=== PATIENT | male | born 1955 | race Caucasian/White ===

== ENCOUNTER 2020-09-30 05:05 | Inpatient (IN) ==
--- NOTE | 2020-09-15 16:26 | PAT Medication Instructions ---
Medication Instructions Date of Service September 15, 2020 Home Medications cholecalciferol (vitamin D3) [Vitamin D3] 125 mcg PO HS citalopram 30 mg PO HS ferrous sulfate 325 mg PO HS folic acid 0.8 mg PO HS gabapentin 600 mg PO TID hydroxyzine pamoate 50 mg PO DAILY PRN melatonin 5 mg PO HS PRN metoprolol succinate 50 mg PO HS mirtazapine [Remeron] 30 mg PO HS pantoprazole 40 mg PO BID DO NOT take the morning of surgery hydroxyzine pamoate 50 mg PO DAILY PRN Take morning of surgery With a small sip of water, OTHERWISE NOTHING TO EAT OR DRINK AFTER MIDNIGHT: gabapentin 600 mg PO TID pantoprazole 40 mg PO BID Take evening before surgery cholecalciferol (vitamin D3) [Vitamin D3] 125 mcg PO HS citalopram 30 mg PO HS ferrous sulfate 325 mg PO HS folic acid 0.8 mg PO HS gabapentin 600 mg PO TID hydroxyzine pamoate 50 mg PO DAILY PRN (if needed) melatonin 5 mg PO HS PRN (if needed) metoprolol succinate 50 mg PO HS mirtazapine [Remeron] 30 mg PO HS pantoprazole 40 mg PO BID Other Notes If you have any questions please call us at [phone] or [phone] or [phone] or [phone]
--- NOTE | 2020-09-19 15:03 | Anesthesiology Consultation ---
Date of Service September 19, 2020 Assessment & Plan (1) Encounter for pre-operative examination: Chart Review Chart Review: Pending: Refer to Additional Notes / Consult section (pending surgeon ordered PCP clearance, most recent cardi note and preop Covid testing ) and Patient seen in Pre Admission Testing Possible difficult intubation due to anatomy and physical exam Awaiting surgeon ordered PCP clearance. Will also attempt to get most recent cardio note Per PAT appointment 09/19/2020, patient resides in [facility]. Denies recent travel. No known Covid infection in the past 90 days. No known Covid positive contacts or Covid related symptoms. Preop Covid testing scheduled 09/25/20=will await results. Educated on importance of self quarantining, social distancing and wearing mask in public both for the patient and household contacts. Teaching & Discussion Pre-Anesthesia Teaching/Discussion Notes: Instructed NPO after midnight before surgery,except medications with 15 cc of water. Medication instructions provided according to the [facility] guidelines. History Surgery Operation Date: 09/30/20 09:20 Proposed Procedures p L4-S1 Decompression and Fusion, Spinal Cord Monitoring - Yoshi Kwon, Height/Weight Height: 5 ft 7 in Weight: 119.8 kg Allergies Allergy/AdvReac Type Severity Reaction Status Date / Time amoxicillin [From Augmentin] Allergy Severe Nausea Verified 09/15/20 14:07 aripiprazole [From Abilify] Allergy Severe Headache Verified 09/15/20 14:07 clavulanic acid Allergy Severe Nausea Verified 09/15/20 14:07 [From Augmentin] Medications Home Medications Medication Instructions Recorded Confirmed Last Taken cholecalciferol (vitamin D3) 125 mcg PO HS 09/15/20 09/15/20 Unknown [Vitamin D3] citalopram 30 mg PO HS 09/15/20 09/15/20 Unknown ferrous sulfate 325 mg PO HS 09/15/20 09/15/20 Unknown folic acid 0.8 mg PO HS 09/15/20 09/15/20 Unknown gabapentin 600 mg PO TID 09/15/20 09/15/20 Unknown hydroxyzine pamoate 50 mg PO DAILY PRN 09/15/20 09/15/20 Unknown melatonin 5 mg PO HS PRN 09/15/20 09/15/20 Unknown metoprolol succinate 50 mg PO HS 09/15/20 09/15/20 Unknown mirtazapine [Remeron] 30 mg PO HS 09/15/20 09/15/20 Unknown pantoprazole 40 mg PO BID 09/15/20 09/15/20 Unknown Past Medical History Medical History Anxiety Barretts esophagus Well controlled and stable - follows with routine EGDs Depression On medications -fluctuates in severity Fatty liver GERD (gastroesophageal reflux disease) Well controlled and stable Hiatal hernia Hypertension Myocardial Infarction 05/2017- no stents or bypass needed Follows annually with cardio Osteoarthritis 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 went to rehab and AA meetings Sleep apnea No device Exercise / Class Metabolic Activity III < 4 Walking/Shop/Light housework (no chest pain or SOB with short distance, flat surface ambulation ) Past Surgical History Surgical History History of cardiac cath ? [facility] 2016 History of colonoscopy History of esophagogastroduodenoscopy (EGD) Nausea and vomiting after administration of anesthetic agent Past Anesthesia History No Hx of Anesthesia Complications and No Family Hx of Anesthesia Complications History of PONV No Hx of PONV (Did have issues with PONV in the past - but no recent issues ) and No Hx of Motion Sickness Social History Smoking Status: Never smoker Do You Dip or Chew Tobacco: No (quit "decades ago") Hx Alcohol Use: No Alcohol Intake Frequency Comment: 08/06/2020 quit, 1/5 vodka, AA meetings and inpatient rehab Hx Substance Use: No substance use type: does not use Review of Systems Patient denies chest pain, shortness of breath, dyspnea on exertion, cough, wheezing, palpitations. No hx of seizures, stroke. No hx of blood clots or blood transfusions Physical Exam Vital Signs VITALS BP 120/74 P 70 TEMP 98.4 SP02 99% RESP 16 Constitutional no acute distress ENMT Mouth: no TMJ clicking Thyromental Distance: < 3.5 Finger Breadths (2.5) Mallampati Class: IV Capped on left front top tooth Neck + limited neck extension (significant ) Respiratory normal respiratory effort; no respiratory distress Auscultation: lungs clear to auscultation bilaterally; no wheezes Cardiovascular Rate/Rhythm: regular rate and regular rhythm Heart Sounds: no murmur Vessels: no carotid bruit Musculoskeletal Spine: + pain with cervical ROM (pain in lumbar spine ) Extremities: extremities normal to inspection Psychiatric Orientation: alert Testing Laboratory Results 09/19/20 16:05 09/19/20 16:05 PT 9.9 Seconds (9.0-12.0) 09/19/20 16:05 INR 1.0 (0.9-1.1) 09/19/20 16:05 APTT 25.1 Seconds (21.0-31.0) 09/19/20 16:05 Urine Color Yellow 09/19/20 Unknown Urine Appearance Clear (Clear) 09/19/20 Unknown Urine pH 5.0 (4.5-7.5) 09/19/20 Unknown Ur Specific [place] 1.025 (1.000-1.030) 09/19/20 Unknown Urine Protein Negative (Negative) 09/19/20 Unknown Urine Glucose (UA) Negative (Negative) 09/19/20 Unknown Urine Ketones Negative (Negative) 09/19/20 Unknown Urine Nitrite Negative (Negative) 09/19/20 Unknown Ur Leukocyte Esterase Negative (Negative) 09/19/20 Unknown Blood Type O Positive 09/19/20 16:05 Antibody Screen NEGATIVE 09/19/20 16:05 Surgeon's office informed of mild leukocytosis - pt did not have an infectious signs or symptoms at PAT appt on 09/19/20 Electrocardiogram Date: 09/14/20 Findings: + NSR @ (69bpm) Possible left atrial enlargement. Prolonged QT. Chest X-Ray Date: 09/14/20 Findings: + NAD Echocardiogram Date: 08/17/20 EF: 55-60% LV Function: normal Other Findings: + LVH (borderline ) and + diastolic dysfunction (Grade I ) Mild left atrial enlargement.
[2020-09-19 16:37] LABS: Basophils # (auto) 0.08 K/uL (0-0.2); Basophils % (auto) 0.6 %; Eosinophils # (auto) 0.84 K/uL (0-0.5); Eosinophils % (auto) 6.7 %; Hematocrit (blood only) 34.3 % (42-52); Hemoglobin 11.8 g/dL (14.0-18.0); Immature Granulocytes # (auto) 0.14 K/uL (0.00-0.02); Immature Granulocytes % (auto) 1.1 %; Lymphocytes # (auto) 3.01 K/uL (1.2-3.4); Lymphocytes % (auto) 23.8 %; Mean Corpuscular Hemoglobin 31.9 pg (25-34); Mean Corpuscular Hgb Conc 34.4 g/dL (32-36); Mean Corpuscular Volume 92.7 fL (80-100); Mean Platelet Volume 11.4 fL (7.4-10.4); Monocytes # (auto) 1.13 K/uL (0.11-0.59); Monocytes % (auto) 8.9 %; Neutrophils # (auto) 7.43 K/uL (1.4-6.5); Neutrophils % (auto) 58.9 %; Nucleated RBC # (auto) 0.04 K/uL (0-0); Nucleated RBC % (auto) 0.3 %; Platelet Count 290 K/uL (130-400); RDW Coefficient of Variation 14.8 % (11.5-14.5); RDW Standard Deviation 49.4 fL (36.4-46.3); White Blood Count 12.63 K/uL (4.8-10.8)
[2020-09-19 16:38] LABS: Appearance Urine Clear (Clear); Bilirubin Urine Negative (Negative); Blood Urine Negative (Negative); Color Urine Yellow; Glucose Urine UA Negative (Negative); Ketones Urine Negative (Negative); Leukocyte Esterase Urine Negative (Negative); Nitrite Urine Negative (Negative); Protein Urine Negative (Negative); Specific Gravity Urine 1.025 (1.000-1.030); Urobilinogen Urine Negative (Negative)
[2020-09-19 16:44] LABS: BUN Creatinine Ratio 19.5 (10-20); Calcium 8.8 mg/dl (8.5-10.1); Est GFR (African American) 86.5; Est GFR (Non-African American) 74.7; Potassium 4.3 mmol/L (3.5-5.1)
[2020-09-19 16:55] LABS: Partial Thromboplastin Time 25.1 Seconds (21.0-31.0); Prothrombin Time 9.9 Seconds (9.0-12.0)
[2020-09-30] MEDS: GABAPENTIN 600 MG DOSE PO SCH ×2 (05:40→05:48)
[2020-09-30] MEDS ORDERED: CLINDAMYCIN 600 MG/54 ML BAG IV SCH (06:00)
[2020-09-30] MEDS ORDERED: ACETAMINOPHEN 500 MG TAB PO SCH (06:00)
[2020-09-30] MEDS ORDERED: LR 15ML/HR IV SCH (06:00)
[2020-09-30] MEDS ORDERED: CeleBREX 200 MG CAP PO SCH (06:00)
[2020-09-30] MEDS ORDERED: GLYCOPYRROLATE 0.2 MG/ML VIAL ONE (06:40)
[2020-09-30] MEDS ORDERED: DEXAMETHASONE SOD INJ 4 MG/ML VIAL ONE (06:40)
[2020-09-30] MEDS ORDERED: NEOSTIGMINE METHYLSULFATE 1 MG/ML 10ML VIAL ONE (06:40)
[2020-09-30] MEDS ORDERED: ONDANSETRON INJ 2 MG/ML 2 ML VIAL ONE (06:40)
[2020-09-30] MEDS ORDERED: LIDOCAINE HCL 2% 2 ML VIAL/AMP(20MG/ML) INFIL ONE (06:40)
[2020-09-30] MEDS ORDERED: PROPOFOL IV EMULSION 10 MG/ML 20 ML VIAL IV ONE (06:40)
[2020-09-30] MEDS ORDERED: MIDAZOLAM HCL 1 MG/ML 2ML VIAL ONE (06:41)
[2020-09-30] MEDS ORDERED: fentaNYL citrate 100 MCG/2 ML VIAL ONE (06:41)
[2020-09-30] MEDS ORDERED: BUPIVACAINE/EPINEPHRINE 0.5% MPF 1:200,000 30 ML VIAL ONE (06:51)
[2020-09-30] MEDS ORDERED: BACITRACIN INJ 50,000 UNIT VIAL ONE (06:51)
--- NOTE | 2020-09-30 07:21 | History & Physical Bridge Note ---
Date of Service September 30, 2020 History & Physical Bridge Note I have examined the patient, reviewed the History & Physical and in the interval since the performance of the History & Physical I have noted the following changes of clinical significance: no changes noted
--- NOTE | 2020-09-30 07:22 | History & Physical Report ---
Date of Service September 30, 2020 Assessment & Plan (1) Neurogenic claudication due to lumbar spinal stenosis: Admission and Anticipated Discharge Date Admission Date: L4-S1 decompression fusion History of Present Illness Chief Complaint: Back and leg pain Primary Care Provider: Garret Malik This is a 64-year-old male who presents with chronic persistent back and leg pain after failing course of nonoperative care is here for surgical invention. Allergies Allergy/AdvReac Type Severity Reaction Status Date / Time aripiprazole [From Abilify] Allergy Intermediate Headache Verified 09/30/20 05:42 amoxicillin [From Augmentin] AdvReac Intermediate Nausea Verified 09/30/20 05:42 clavulanic acid AdvReac Intermediate Nausea Verified 09/30/20 05:42 [From Augmentin] Home Medications Medication Instructions Recorded Confirmed Type cholecalciferol (vitamin D3) 125 mcg PO HS 09/15/20 09/30/20 History [Vitamin D3] citalopram 30 mg PO HS 09/15/20 09/30/20 History ferrous sulfate 325 mg PO HS 09/15/20 09/30/20 History folic acid 0.8 mg PO HS 09/15/20 09/30/20 History gabapentin 600 mg PO TID 09/15/20 09/30/20 History hydroxyzine pamoate 50 mg PO DAILY PRN 09/15/20 09/30/20 History melatonin 5 mg PO HS PRN 09/15/20 09/30/20 History metoprolol succinate 50 mg PO HS 09/15/20 09/30/20 History mirtazapine [Remeron] 30 mg PO HS 09/15/20 09/30/20 History pantoprazole 40 mg PO BID 09/15/20 09/30/20 History Past Med/Surg History Medical History Anxiety Barretts esophagus Well controlled and stable - follows with routine EGDs Depression On medications -fluctuates in severity Fatty liver GERD (gastroesophageal reflux disease) Well controlled and stable Hiatal hernia Hypertension Myocardial Infarction 05/2017- no stents or bypass needed Follows annually with cardio Osteoarthritis 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 went to rehab and AA meetings Sleep apnea No device Surgical History History of cardiac cath ? [facility] 2017 History of colonoscopy History of esophagogastroduodenoscopy (EGD) Nausea and vomiting after administration of anesthetic agent Social History Smoking Status: Never smoker Second Hand Exposure: No; Do You Dip or Chew Tobacco: No (quit "decades ago"); Hx Alcohol Use: No Hx Substance Use: No Preferred Language: Beninese Mold Filler Plastic Dolls Required: No Beliefs That Will Affect Care: None Current Living Situation: Alone Other Information That Helps Us Care for You: No Feels Safe at Home: Yes Safety Concerns: Feels Safe At This Time Assistive Devices: Walker Physical Exam Physical Exam: Patient is alert and oriented Heart regular in rhythm Lungs clear to auscultation Results & Data ([facility]) Vital Signs (Past 12 Hours) Vital Signs Temp Pulse Resp BP Pulse Ox 09/30/20 05:43 36.8 C 66 18 123/90 95
[2020-09-30] MEDS ORDERED: HYDROmorphone INJ 2 MG/ML SYR/VIAL ONE (07:49)
[2020-09-30] MEDS ORDERED: FLOSEAL HEMOSTATIC MATRIX 10ML TOP ONE (09:35)
--- NOTE | 2020-09-30 09:45 | Operative Report ---
Post Operative Report Pre & Post Diagnosis Operation Date: 09/30/20 07:00 Pre-Op Diagnosis: Spinal Stenosis, Lumbar Region with Neurogenic Claudication Post-Op Diagnosis: Spinal Stenosis, Lumbar Region with Neurogenic Claudication I identified the patient and participated in the time-out.: Yes Procedure Operation Date: 09/30/20 07:00 Actual Procedures #1 lumbar decompression bilateral medial facetectomies and foraminotomies L3-4, L4-5 and L5-S1. #2 posterior spinal fusion L4-5 L5-S1. #3 placement posterior instrumentation L4-5 L5-S1. #4 interbody fusion L4-5 L5-S1. #5 placement peek cage 9 x 26 mm at L4-5 and 12 x 26 mm L5-S1. #6 placement of locally harvested morselized autograft in the posterior gutters. #7 placement of I factor in the posterior lateral gutters and interbody spacers. Surgeon Yoshi Kwon, DO Powdered Sugar Pulverizer Operator Sheryl Foster Estimated Blood Loss 300 Findings See Below Patient is 5 foot 7 weighing over 119 kg with a BMI in excess of 41. The patient's body habitus did contribute to significant technical difficulty. He did require deepest retractors longus instruments in order to perform his procedure. This added at least 50% increase to the operative time. Specimens None Indications This is a 64-year-old male who presents with above-mentioned diagnosis after failing course of nonoperative care is here for the above-mentioned procedure. Description of Procedure Patient was met with identified informed consent obtained. Patient was then taken to the operative suite underwent a patient placed in prone position injectable top Abebe frame. All bony prominences well-padded eyes inspected to ensure no external pressure placed upon up at this point the lumbar spine was prepped and draped in a sterile fashion. Sharp dissection with the assistance of Bovie cautery performed down to and exposing the lamina and transverse processes of L4-L5 and sacral ala bilaterally. From caudal cephalad fashion complete laminectomy L5 L4 partial laminectomy L3 was performed including bilateral medial facetectomies and foraminotomies addressing severe spinal stenosis. Pedicle screws then placed in L4-L5 and S1 levels bilaterally with assistance of fluoroscopy and appropriate sized jewell placed. By way of a transforaminal approach on the right complete discectomy of L5-S1 was performed endplates curetted to subcortical bleeding bone and a 12 x 26 mm peek cage filled with I factor tapped in position. Then proceeded L4-L5 and again by way of a transforaminal approach on the right complete discectomy was performed endplates curetted to subcortical being bone and a 9 x 26 mm peek cage filled with I factor tapped in position. The rods were then locked in final position bilaterally. The transverse processes of L for L5 and the sacral ala burred to subcortical bleeding bone. I factor and local autograft was then placed in the posterior lateral gutters. 15 round JANAE drain inserted. The incision was then closed with 1 Vicryl the fascia 2-0 Vicryl subcutaneously and 4 Monocryl for final skin closure. Steri-Strip sterile dressings placed. Patient waken taken to PACU stable condition. Please note spinal cord monitoring was utilized at the procedure no changes noted. Lastly Sheryl Foster was present at the entire surgery involved the patient positioning complex portions of the surgery and final skin closure. I attest to the content of the Intraoperative Record and any orders documented therein. Any exceptions are noted below.
--- NOTE | 2020-09-30 09:51 | Fluoroscopy Report ---
FL lumbar spine 2-3V CLINICAL HISTORY: L4-S1 DECOMPRESSION AND FUSION COMPARISON STUDY: None. FLUOROSCOPY TIME: 21 seconds. FINDINGS: 2 fluoroscopic spot images of the lumbar spine demonstrate posterior decompression and fusi on from L4 through S1 with pedicle screws and rods. The hardware appears intact. IMPRESSION: Fluoroscopy provided for L4-S1 posterior decompression and fusion ACT 112: Negative or not required by law. Electronically signed by: Cristopher Morales M.D. 09/30/2020 9:50 AM
[2020-09-30] MEDS ORDERED: fentaNYL citrate 100 MCG/2 ML VIAL IV PRN (10:02)
[2020-09-30] MEDS ORDERED: ONDANSETRON INJ 2 MG/ML 2 ML VIAL IV PRN ×2 (10:02→11:09)
[2020-09-30] MEDS ORDERED: ATROPINE SULFATE 0.1 MG/ML 10ML SYR IV PRN (10:02)
[2020-09-30] MEDS ORDERED: HYDROmorphone INJ 0.5 MG/0.5 ML SYR IV PRN ×2 (10:02→11:09)
[2020-09-30] MEDS ORDERED: ePHEDrine sulfate 50 MG/ML AMP IV PRN (10:02)
--- NOTE | 2020-09-30 10:59 | Anesthesiology Progress Note ---
Date of Service September 30, 2020 Anesthesia Post Procedure Vital Signs Vital Signs: Temp Pulse Pulse Resp BP Pulse Ox 09/30/20 10:45 77 16 129/70 97 09/30/20 10:35 36.6 C 78 16 129/74 97 09/30/20 10:25 79 17 138/67 97 09/30/20 10:15 80 16 152/53 H 98 09/30/20 10:07 36.7 C 87 16 132/80 94 09/30/20 05:43 36.8 C 66 18 123/90 95 Transfer of Care Handoff Completed per policy Notes Mental Status: alert / awake / arousable and participated in evaluation Patient Amnestic to Procedure: Yes Nausea / Vomiting: adequately controlled Pain: adequately controlled Airway Patency, RR, SpO2: stable & adequate BP & HR: stable & adequate Hydration State: stable & adequate Anesthetic Complications: no major complications apparent and Pt Satisfied with anesthetic care
[2020-09-30] MEDS ORDERED: METOCLOPRAMIDE HCL INJ 5 MG/ML 2 ML VIAL IV PRN (11:09)
[2020-09-30] MEDS ORDERED: ONDANSETRON 4 MG OD TAB PO PRN (11:09)
[2020-09-30] MEDS ORDERED: traMADol HCL 50 MG TABLET PO PRN (11:09)
[2020-09-30] MEDS ORDERED: SOD PHOSPHATE/SOD BIPHOSPHATE ENEMA 132 ML BTL PR PRN (11:09)
[2020-09-30] MEDS ORDERED: diphenhydrAMINE Capsule 25 MG CAP PO PRN (11:09)
[2020-09-30] MEDS ORDERED: NALOXONE HCL 0.4 MG/1 ML VIAL/CARP IV PRN (11:09)
[2020-09-30] MEDS ORDERED: hydrOXYzine HCl 25 MG TAB PO PRN (11:09)
[2020-09-30] MEDS ORDERED: bisacodyL 10 MG SUPP PR PRN (11:09)
[2020-09-30] MEDS ORDERED: ACETAMINOPHEN 1,000 MG/100 ML VIAL IV PRN (11:09)
[2020-09-30] MEDS ORDERED: HYDROmorphone INJ 1 MG/ML SYRINGE IV PRN (11:09)
[2020-09-30] MEDS ORDERED: LORazepam 0.5 MG TAB PO PRN (11:09)
[2020-09-30] MEDS ORDERED: ALUMINUM/MAGNESIUM SUSP 30 ML UDC PO PRN (11:09)
[2020-09-30] MEDS ORDERED: DO NOT ADMINISTER PNEUMOCOCCAL VACCINE PRN (11:09)
[2020-09-30] MEDS ORDERED: LORazepam 0.5 MG/1 ML VIAL IV PRN (11:09)
[2020-09-30] MEDS ORDERED: DO NOT ADMINISTER FLU VACCINE PRN (11:09)
[2020-09-30] MEDS ORDERED: PROMETHAZINE HCL 12.5 MG in SODIUM CHLORIDE 0.9% 50 ML IV PRN (11:09)
[2020-09-30] MEDS ORDERED: FAMOTIDINE 20 MG TAB PO PRN (11:09)
[2020-09-30] MEDS ORDERED: MAGNESIUM HYDROXIDE SUSP 30 ML UDC PO PRN (11:09)
[2020-09-30] MEDS ORDERED: MELATONIN 3 MG TAB PO PRN (11:17)
--- NOTE | 2020-09-30 11:41 | Hospitalist Consultation ---
Date of Consultation September 30, 2020 Assessment & Plan (1) Neurogenic claudication due to lumbar spinal stenosis: Status post L4 S1 decompression fusion 09/30/2020 Dr. Kwon (2) Barretts esophagus: Remains on Protonix twice daily (3) Depression: Take Celexa and Remeron (4) History of HI (myocardial infarction): Poorly outpatient MRI associate with a history of alcoholism sees cardiology on an annual basis did have a negative resting echocardiogram and cardiology visit in August 2020 preoperative clearance (5) Morbid obesity with BMI of 40.0-44.9, adult: Patient with history of morbid obesity BMI 41 also history of fatty liver at this time there seems to be no symptoms associate with this History of Present Illness Attending Physician: Yoshi Kwon, History of Present Illness Patient status post L4 S1 decompression and fusion on 09/30/[address] Alex Kwon questing postop medical management consult. Active medical problems include morbid obesity, fatty liver depression and Elder's esophagus secondary to GERD.. the patient had cardiology clearance prior to visit given history of HI with negative cath, with evaluation echocardiogram August 2020 with normal LV size and borderline LVH. Allergies Allergy/AdvReac Type Severity Reaction Status Date / Time aripiprazole [From Abilify] Allergy Intermediate Headache Verified 09/30/20 05:42 amoxicillin [From Augmentin] AdvReac Intermediate Nausea Verified 09/30/20 05:42 clavulanic acid AdvReac Intermediate Nausea Verified 09/30/20 05:42 [From Augmentin] Home Medications Medication Instructions Recorded Confirmed Type cholecalciferol (vitamin D3) 125 mcg PO HS 09/15/20 09/30/20 History [Vitamin D3] citalopram 30 mg PO HS 09/15/20 09/30/20 History ferrous sulfate 325 mg PO HS 09/15/20 09/30/20 History folic acid 0.8 mg PO HS 09/15/20 09/30/20 History gabapentin 600 mg PO TID 09/15/20 09/30/20 History hydroxyzine pamoate 50 mg PO DAILY PRN 09/15/20 09/30/20 History melatonin 5 mg PO HS PRN 09/15/20 09/30/20 History metoprolol succinate 50 mg PO HS 09/15/20 09/30/20 History mirtazapine [Remeron] 30 mg PO HS 09/15/20 09/30/20 History pantoprazole 40 mg PO BID 09/15/20 09/30/20 History Patient History Medical History (Updated 09/30/20 @ 11:41 by Pa Awan MD) Anxiety Barretts esophagus Well controlled and stable - follows with routine EGDs Depression On medications -fluctuates in severity Fatty liver GERD (gastroesophageal reflux disease) Well controlled and stable Hiatal hernia Hypertension Myocardial Infarction 05/2017- no stents or bypass needed Follows annually with cardio Osteoarthritis 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 went to rehab and AA meetings Sleep apnea No device Surgical History History of cardiac cath ? [facility] 2016 History of colonoscopy History of esophagogastroduodenoscopy (EGD) Nausea and vomiting after administration of anesthetic agent Social History Smoking Status: Never smoker Second Hand Exposure: No; Do You Dip or Chew Tobacco: No (quit "decades ago"); Hx Alcohol Use: No Hx Substance Use: No Preferred Language: Romansh Buffing Wheel Former Automatic Required: No Beliefs That Will Affect Care: None Current Living Situation: Alone Other Information That Helps Us Care for You: No Feels Safe at Home: Yes Safety Concerns: Feels Safe At This Time Assistive Devices: Glasses Review of Systems Review of Systems: Mild distress and fatigue no headache, blurry or double vision no speech or swallowing issues no chest pain, pressure or palpitations no shortness of breath, cough or wheezes no abdominal pain, nausea or vomiting, diarrhea or constipation no dysuria, hematuria or frequency no focal joint pain or swelling no back pain, CVA tenderness or radicular pain no bruising, bleeding or rashes no focal signs of weakness or numbness or altered sensation no complaints of anxiety or depression.. Physical Exam Physical Exam: The patient appeared well nourished and normally developed. Vital signs as documented. Head exam is normocephalic atraumatic no scleral icterus Neck is without JVD, thyromegaly, or carotid bruits. Lungs are clear to auscultation, no focal loss of breath sounds Cardiac exam, Rhythm is regular.. No murmurs, rubs or gallops. Abdominal exam reveals normal bowel sounds, soft non tender, no masses Extremities are nonedematous and both pedal pulses are present Neurologic exam is alert and oriented, no focal loss of strength or sensation Skin is without bruises or rashes Psychologically is without concerns for anxiety or depression Results & Data Results & Data ([facility]) Vital Signs (Past 12 Hours) Vital Signs Temp Pulse Pulse Resp BP Pulse Ox 09/30/20 10:45 77 16 129/70 97 09/30/20 10:35 97.9 F 78 16 129/74 97 09/30/20 10:25 79 17 138/67 97 09/30/20 10:15 80 16 152/53 H 98 09/30/20 10:07 98.1 F 87 16 132/80 94 09/30/20 05:43 98.2 F 66 18 123/90 95 PG Care Time/CCT Total # of Minutes Spent Total Time Spent with Patient: Total time spent is greater than 50% in coordination of care (as documented) at patient's floor/unit and/or counseling patient: Coding Level of Care Code 69988 Inpt Consult Level 3 Diagnoses Neurogenic claudication due to lumbar spinal stenosis M48.062 Barretts esophagus K22.70 Depression F32.9 History of HI (myocardial infarction) I25.2 Morbid obesity with BMI of 40.0-44.9, adult E66.01; Z68.41
[2020-09-30] MEDS: LACTATED RINGER'S 1,000 ML IV SCH ×2 (12:06→18:09)
[2020-09-30] MEDS: oxyCODONE HCL IR 5 MG TAB (IMMEDIATE RELEASE) PO PRN ×3 (12:44→21:49)
[2020-09-30] MEDS: GABAPENTIN 600 MG TAB PO SCH ×2 (13:10→20:38)
[2020-09-30] MEDS: CLINDAMYCIN 600 MG in DEXTROSE 5% 50 ML IV SCH ×2 (15:43→23:25)
[2020-09-30] MEDS: PANTOprazole 40 MG TAB PO SCH (20:36)
[2020-09-30] MEDS: DOCUSATE SODIUM/SENNA 50/8.6MG TAB PO SCH (20:37)
[2020-09-30] MEDS: METOPROLOL SUCC 50MG EXT REL TAB PO SCH (20:37)
[2020-09-30] MEDS: MIRTAZAPINE TAB 15 MG TAB PO SCH (20:37)
[2020-09-30] MEDS: FERROUS SULFATE 325 MG TAB PO SCH (20:38)
[2020-09-30] MEDS: FOLIC ACID 400 MCG TAB PO SCH (20:38)
[2020-09-30] MEDS: CITALOPRAM 20 MG TAB PO SCH (20:39)
[2020-10-01] MEDS: MELATONIN 3 MG TAB PO PRN (00:45)
[2020-10-01] MEDS: LACTATED RINGER'S 1,000 ML IV SCH (01:02)
[2020-10-01 06:07] LABS: Basophils # (auto) 0.01 K/uL (0-0.2); Basophils % (auto) 0.1 %; Eosinophils # (auto) 0.01 K/uL (0-0.5); Eosinophils % (auto) 0.1 %; Hematocrit (blood only) 28.1 % (42-52); Hemoglobin 9.4 g/dL (14.0-18.0); Immature Granulocytes # (auto) 0.14 K/uL (0.00-0.02); Immature Granulocytes % (auto) 0.9 %; Lymphocytes # (auto) 1.13 K/uL (1.2-3.4); Mean Corpuscular Hemoglobin 31.3 pg (25-34); Mean Corpuscular Hgb Conc 33.5 g/dL (32-36); Mean Corpuscular Volume 93.7 fL (80-100); Mean Platelet Volume 10.8 fL (7.4-10.4); Monocytes # (auto) 1.31 K/uL (0.11-0.59); Monocytes % (auto) 8.1 %; Neutrophils # (auto) 13.49 K/uL (1.4-6.5); Neutrophils % (auto) 83.8 %; Nucleated RBC # (auto) 0.08 K/uL (0-0); Nucleated RBC % (auto) 0.5 %; Platelet Count 236 K/uL (130-400); RDW Coefficient of Variation 14.9 % (11.5-14.5); RDW Standard Deviation 50.6 fL (36.4-46.3); White Blood Count 16.09 K/uL (4.8-10.8)
[2020-10-01] MEDS: POLYETHYLENE (MIRALAX) 17 GM PACK PO SCH ×3 (06:07→18:12)
[2020-10-01 06:32] LABS: BUN Creatinine Ratio 16.6 (10-20); Calcium 8.8 mg/dl (8.5-10.1); Creatinine Clr Calc Pharmacy 88.9 ml/min; Est GFR (African American) 87.5; Est GFR (Non-African American) 75.5; Potassium 4.8 mmol/L (3.5-5.1)
[2020-10-01] MEDS: oxyCODONE HCL IR 5 MG TAB (IMMEDIATE RELEASE) PO PRN ×4 (07:52→19:41)
[2020-10-01] MEDS: GABAPENTIN 600 MG TAB PO SCH ×3 (08:52→20:34)
[2020-10-01] MEDS: PANTOprazole 40 MG TAB PO SCH ×2 (08:53→20:35)
--- NOTE | 2020-10-01 12:31 | Orthopedic Progress Note ---
Date of Service October 01, 2020 Assessment & Plan (1) Neurogenic claudication due to lumbar spinal stenosis: Admission and Anticipated Discharge Date Admission Date: September 30, 2020 At this time initiate physical therapy assess his progress over the next few days. He may very well be a candidate for rehab placement. Home health may be an alternative. Subjective Patient's back pain is controlled leg symptoms improved. Physical Exam Physical Exam: On exam is in the chair at the bedside. Is good strength testing. Appears comfortable. Results & Data ([facility]) Vital Signs (Past 12 Hours) Vital Signs Temp Pulse Resp BP Pulse Ox 10/01/20 07:55 36.4 C L 70 16 101/63 94 10/01/20 02:13 36.6 C 80 14 135/73 92
[2020-10-01] MEDS: ACETAMINOPHEN 500 MG TAB PO PRN (19:16)
--- NOTE | 2020-10-01 19:48 | Hospitalist Progress Note ---
Date of Service October 01, 2020 Assessment & Plan (1) Neurogenic claudication due to lumbar spinal stenosis: Status post L4 S1 decompression fusion 09/30/2020 Dr. Kwon, doing well overall (2) Barretts esophagus: Continue PPI (3) Depression: Continue home meds (4) History of AL (myocardial infarction): Reviewed outpatient cardiology notes, and it seems that he has more of a degree of a cardiomyopathy probably related to alcoholism, but no notable coronary disease (5) Morbid obesity with BMI of 40.0-44.9, adult: Patient with history of morbid obesity BMI 41 also history of fatty liver at this time there seems to be no symptoms associate with this (6) Anemia: Acute blood loss as anticipated with surgery. Asymptomatic, no indications for transfusion (7) Leukocytosis: Almost certainly steroid effect. No signs or symptoms of infection (8) DVT prophylaxis: Per orthopedics (SCDs) (9) Discharge planning issues: PT/OT eval and treat. Otherwise disposition per orthopedics. Hospitalist team will sign off at this time, will be available as needed thank you. Admission and Anticipated Discharge Date Admission Date: September 30, 2020 Subjective feeling good overall, no weakness no lightheadedness, legs are a little bit w eak, a little bit of soreness in the back. No other new complaints. Review of Systems Review of Systems: All systems reviewed & are unremarkable except as noted in HPI & below Physical Exam Physical Exam: In general he is awake and alert pleasant no distress. HEENT normocephalic atraumatic mucous membranes moist. Breathing unlabored no accessory muscle use good effort. Skin shows no rashes no pallor or icterus. Neuro shows no focal deficits. Results & Data Results & Data ([facility]) Vital Signs (Past 12 Hours) Vital Signs Temp Pulse Resp BP Pulse Ox 10/01/20 15:52 97.9 F 77 18 105/67 95 10/01/20 07:55 97.5 F L 70 16 101/63 94 PG Care Time/CCT Total # of Minutes Spent Total Time Spent with Patient: Total time spent is greater than 50% in coordination of care (as documented) at patient's floor/unit and/or counseling patient: Coding Level of Care Code 58058 Subseq Hosp Care Lvl 2 Diagnoses Neurogenic claudication due to lumbar spinal stenosis M48.062 Barretts esophagus K22.70 Depression F32.9 History of AL (myocardial infarction) I25.2 Morbid obesity with BMI of 40.0-44.9, adult E66.01; Z68.41 Anemia D64.9 Leukocytosis D72.829 DVT prophylaxis Z29.9 Discharge planning issues Z02.9
[2020-10-01] MEDS: CITALOPRAM 20 MG TAB PO SCH (20:32)
[2020-10-01] MEDS: DOCUSATE SODIUM/SENNA 50/8.6MG TAB PO SCH (20:35)
[2020-10-01] MEDS: FOLIC ACID 400 MCG TAB PO SCH (20:36)
[2020-10-01] MEDS: METOPROLOL SUCC 50MG EXT REL TAB PO SCH (20:36)
[2020-10-01] MEDS: FERROUS SULFATE 325 MG TAB PO SCH (20:36)
[2020-10-01] MEDS: MIRTAZAPINE TAB 15 MG TAB PO SCH (20:37)
[2020-10-02] MEDS: POLYETHYLENE (MIRALAX) 17 GM PACK PO SCH ×4 (01:10→18:06)
[2020-10-02] MEDS: oxyCODONE HCL IR 5 MG TAB (IMMEDIATE RELEASE) PO PRN ×2 (02:28→08:39)
[2020-10-02] MEDS: PANTOprazole 40 MG TAB PO SCH ×2 (08:28→21:30)
[2020-10-02] MEDS: dexAMETHasone 8 MG in SYRINGE 0 ML IV SCH (08:28)
[2020-10-02] MEDS: GABAPENTIN 600 MG TAB PO SCH ×3 (08:28→21:31)
[2020-10-02] MEDS: ACETAMINOPHEN 500 MG TAB PO PRN ×2 (10:05→18:47)
--- NOTE | 2020-10-02 12:39 | Orthopedic Progress Note ---
Date of Service October 02, 2020 Assessment & Plan (1) Neurogenic claudication due to lumbar spinal stenosis: Admission and Anticipated Discharge Date Admission Date: September 30, 2020 This time we will continue physical therapy monitor his JANAE output hopefully he will be accepted to rehab and may be discharge as soon as tomorrow. Subjective Back pain is controlled leg symptoms markedly improved. Physical Exam Physical Exam: On exam he has good strength testing appears comfortable. Results & Data ([facility]) Vital Signs (Past 12 Hours) Vital Signs Temp Pulse Resp BP Pulse Ox 10/02/20 06:18 36.4 C L 80 15 121/76 93
[2020-10-02] MEDS: DOCUSATE SODIUM/SENNA 50/8.6MG TAB PO SCH (21:31)
[2020-10-02] MEDS: METOPROLOL SUCC 50MG EXT REL TAB PO SCH (21:31)
[2020-10-02] MEDS: FERROUS SULFATE 325 MG TAB PO SCH (21:31)
[2020-10-02] MEDS: MIRTAZAPINE TAB 15 MG TAB PO SCH (21:31)
[2020-10-02] MEDS: FOLIC ACID 400 MCG TAB PO SCH (21:32)
[2020-10-02] MEDS: CITALOPRAM 20 MG TAB PO SCH (21:32)
[2020-10-03] MEDS: POLYETHYLENE (MIRALAX) 17 GM PACK PO SCH (00:21)
[2020-10-03] MEDS: ACETAMINOPHEN 500 MG TAB PO PRN ×3 (04:56→23:50)
[2020-10-03] MEDS: hydrOXYzine HCl 25 MG TAB PO PRN ×2 (04:59→20:58)
[2020-10-03] MEDS: PANTOprazole 40 MG TAB PO SCH ×2 (08:33→20:50)
[2020-10-03] MEDS: dexAMETHasone 8 MG in SYRINGE 0 ML IV SCH (08:33)
[2020-10-03] MEDS: GABAPENTIN 600 MG TAB PO SCH ×3 (08:33→20:50)
[2020-10-03] MEDS: oxyCODONE HCL IR 5 MG TAB (IMMEDIATE RELEASE) PO PRN ×2 (09:32→23:51)
--- NOTE | 2020-10-03 10:33 | Orthopedic Progress Note ---
Date of Service October 03, 2020 Assessment & Plan (1) Neurogenic claudication due to lumbar spinal stenosis: Patient is orthopedically stable for discharge. We are currently awaiting for bed availability at chosen rehab facility and insurance authorization. Until then we will maintain JANAE drain. Continue with pain control. Continue with DVT prophylaxis in the form of teds and SCDs. Continue with bowel regimen. Admission and Anticipated Discharge Date Admission Date: September 30, 2020 Supervising Physician Co-Signing Physician Notes Dr. Yoshi Kwon Subjective Patient is postoperative day 3 multilevel lumbar decompression fusion. Has back and leg pain but improved compared to preoperative status. He is making progress in physical therapy. JANAE drain output last shift was 20 cc. He has had a bowel movement. He has had an uneventful evening. We are currently awaiting bed availability for rehab as well as insurance authorization. He is stable for discharge. Review of Systems Review of Systems: All systems reviewed & are unremarkable except as noted in HPI & below Physical Exam Physical Exam: Alert and oriented x3 No acute distress Lumbar dressing is clean dry and intact Calves are soft nontender bilaterally. Strength is 5/5 bilateral EHL, dorsiflexion, plantarflexion, quadriceps, hamstrings Constitutional: WD/WN, vitals as above well developed Eyes: normal visual luther by confrontation ENMT: external ear and nose normal, oropharynx normal Neck: normal visual inspection Respiratory: normal respiratory effort Cardiovascular: Extremities: normal capillary refill Chest (Breasts): Chest: normal inspection of chest Gastrointestinal (Abdomen): Inspection/Auscultation: abdomen normal to inspection Musculoskeletal: no cyanosis or clubbing, extremities motor strength 5/5 Skin: no rashes, warm and dry Neurologic: normal touch/pain/proprioception and moves all extremities Psychiatric: A+Ox3, euthymic affect Results & Data ([facility]) Vital Signs (Past 12 Hours) Vital Signs Temp Pulse Resp BP Pulse Ox 10/03/20 07:59 36.5 C 76 16 125/68 95
[2020-10-03] MEDS: FOLIC ACID 400 MCG TAB PO SCH (20:50)
[2020-10-03] MEDS: MIRTAZAPINE TAB 15 MG TAB PO SCH (20:50)
[2020-10-03] MEDS: FERROUS SULFATE 325 MG TAB PO SCH (20:50)
[2020-10-03] MEDS: METOPROLOL SUCC 50MG EXT REL TAB PO SCH (20:50)
[2020-10-03] MEDS: CITALOPRAM 20 MG TAB PO SCH (20:51)
[2020-10-03] MEDS: DOCUSATE SODIUM/SENNA 50/8.6MG TAB PO SCH (20:52)
[2020-10-03] MEDS: MELATONIN 3 MG TAB PO PRN (23:50)
[2020-10-04] MEDS: dexAMETHasone 8 MG in SYRINGE 0 ML IV SCH (08:51)
[2020-10-04] MEDS: GABAPENTIN 600 MG TAB PO SCH ×2 (08:51→13:33)
[2020-10-04] MEDS: PANTOprazole 40 MG TAB PO SCH (08:52)
[2020-10-04] MEDS: oxyCODONE HCL IR 5 MG TAB (IMMEDIATE RELEASE) PO PRN (10:04)
[2020-10-04] MEDS: ACETAMINOPHEN 500 MG TAB PO PRN (10:09)
--- NOTE | 2020-10-04 10:27 | Discharge Summary ---
Date of Service October 04, 2020 Admission HPI Per Admitting Provider This is a 64-year-old male who presents with chronic persistent back and leg pain after failing course of nonoperative care is here for surgical invention. Principal Diagnosis Lumbar spinal stenosis with neurogenic claudication Discharge Data Allergies Allergy/AdvReac Type Severity Reaction Status Date / Time aripiprazole [From Abilify] Allergy Intermediate Headache Verified 09/30/20 05:42 amoxicillin [From Augmentin] AdvReac Intermediate Nausea Verified 09/30/20 05:42 clavulanic acid AdvReac Intermediate Nausea Verified 09/30/20 05:42 [From Augmentin] Consultations 09/30/20 11:09 Consult Hospitalist Routine Procedures Performed Operation Date: 09/30/20 07:00 Actual Procedures p L4-S1 Decompression and Fusion, Spinal Cord Monitoring(Not Applicable) - Yoshi Kwon DO Ordered Studies 09/30/20 07:00 FL fluoroscopy <1hr Routine FL lumbar spine 2-3V Routine Hospital Course (1) Neurogenic claudication due to lumbar spinal stenosis: Patient went lumbar decompression fusion tolerated well second orthopedic for possibly. Postop day 1 he was tolerated physical therapy progressed to postop day #2 and 3 JANAE drain decreasing probably. Excellent strength testing. Subsequently discharged [facility]. Discharge orders instructions on the chart for further review. Total Time Total Time Spent Total Time Spent (In Minutes): 20 minutes Discharge Plan Discharge Items Patient Disposition: Transfer Inpatient Rehab Fac Reason For Visit: Spinal Stenosis, Lumbar Region with Neurogenic Discharge Diagnosis: Lumbar spinal stenosis with neurogenic claudication Activity: As commented below Non-emergency contact: Primary Care Provider Call non-emergency contact if: you have any medication questions Follow-up/Referrals: Garret Malik M.D. [Primary Care Provider] - Diet: Regular Addtl Attending Provider Instructions: ACTIVITY RECOMMENDATIONS: SELF CARE INSTRUCTIONS AFTER THORACIC/LUMBAR FUSIONS 1. You may walk to your tolerance. It is good exercise for your legs and back. Expect some back and intermittent leg aches and pains. 2. You may perform "counter-top" level activities (make a sandwich, lourdes with a project, etc.). 3. No bending or lifting of more than 10 pounds or back twisting of any nature (roll like a log when turning in bed). 4. You may ride in a car for 20-30 minutes at a time. No driving until after your first visit with your doctor. 5. Frequent changes of position and restricting sitting to 30 minutes at a time will help limit the amount of back spasms and stiffness you may experience. 6. You may discontinue the use of ambulatory aids (cane, crutches, etc.) once your strength and confidence allow. 7. You may naval marine engineer the shower and let water strike your incision when you arrive home at least once daily. Do not take a tub bath, sit in a hot tub or go into a swimming pool until after your first recheck in the office. SPECIAL CARE INSTRUCTIONS: VERY IMPORTANT TO READ AND REVIEW A. Your surgical incision has been closed with a cosmetic suture under the skin that will dissolve in about 6 weeks. In 14 days, you can use a pair of clean scissors and cut the suture that is left outside of the skin at the ends of your incision. 1. The small skin tapes can be removed 7 days after surgery if they have not fallen off by that point. 2. You may keep the wound open to air as much as possible to promote healing after post-op day number 5 unless told otherwise by your doctor. 3. If you think the wound looks like it is becoming infected (redness or worsening drainage) and/or you are experiencing fever, chill or worsening back pain and muscle spasms, contact the office so that we may evaluate you as soon as possible. B. Complications are uncommon, but please contact us if you have any signs or symptoms of: 1. wound infection (fever higher than 102.5 degrees F, redness, separation of wound, drainage, or increasing pain from the incision) 2. blood clots in legs (pain, swelling, redness and warmth in legs) 3. urinary tract infection (fever higher than 102.5 degrees F, burning upon urination or increased frequency of urination) 4. nerve problems (inability to walk on your toes or heels, numbness, loss of bowel or bladder control) 5. any other symptoms that concern you C. Please call the office at if you have any concerns or questions about your operation or recovery. D. No smoking! Smoking drastically decreases the chance of a solid fusion. E. Do not take any anti-inflammatory medications (Indocin, Advil, Motrin, Aspirin, Naprosyn, etc.) as these may inhibit the chance of a solid fusion. Tylenol is okay to take for pain. MANAGING PAIN AFTER SPINAL SURGERY 1. Narcotic medication is intended for short-term use and will be provided for surgical pain. Surgical pain usually lasts for a period of 4-6 weeks. Narcotic medication includes Percocet, Vicodin, Darvocet, Tylenol #3 or Lortab. 2. Longer-term pain is more appropriately treated with non-narcotic medication such as Tylenol ES. 3. Muscle spasm is not appropriately treated with narcotics. Muscle relaxers such as Soma, Flexeril or Skelaxin can be used along with Tylenol ES. 4. Remember that we all live with some "aches and pains". This is not unusual or uncommon after an injury or as we get older. a. Back pain is expected and may include muscle spasms for 4 to 6 weeks after surgery. The pain should gradually improve. If the pain worsens for no apparent reason, please contact the office. b. Intermittent leg pain may also be experienced and should not be concerned about unless it worsens for no apparent reason. If so, please contact the office. 5. We will provide appropriate medication within the normal guidelines of their prescribed use. We will also be very cautious and aware of potential abuse and extended duration of patients' medication needs. a. Pain medications are for your comfort and to assist with sleep and rest so that the tissue can heal. They are not provided in order to return to normal activity and should not be used through the day. To do so or worsening pain at night can result from ongoing tissue damage and development of tolerance to the prescribed medicine. 6. Please allow 2-3 days to process refills. Prescriptions will not be mailed but must be picked up at the office. FOLLOW UP VISIT: Keep your scheduled follow-up appointment. Any questions, please call the office at . Pending Studies at Discharge: No Stand-Alone Forms: My [employer] Skilled Items Patient informed of condition?: Yes DNR: No Discharge Level of Care: Acute rehab Communicable Disease: No Discharge Prognosis: Improving Lines: None Urinary Catheter: No Medications and DC Order Prescriptions: New tramadol 50 mg tablet 50 mg PO Q6H PRN (Reason: pain, moderate) Qty: 30 RF: 0 oxycodone 5 mg tablet 5 mg PO Q6H PRN (Reason: pain, severe) Qty: 30 RF: 0 tramadol 50 mg tablet 50 mg PO Q6H PRN (Reason: pain, moderate) Qty: 30 RF: 0 oxycodone 5 mg tablet 5 mg PO Q6H PRN (Reason: pain, severe) Qty: 30 RF: 0 Continued gabapentin 600 mg Tablet 600 mg PO TID RF: 0 citalopram 10 mg Tablet 30 mg PO HS RF: 0 hydroxyzine pamoate 50 mg Capsule 50 mg PO DAILY PRN (Reason: Anxiety) RF: 0 folic acid 400 mcg Tablet 0.8 mg PO HS RF: 0 pantoprazole 40 mg Tablet,Delayed Release (Dr/Ec) 40 mg PO BID RF: 0 mirtazapine [Remeron] 30 mg Tablet 30 mg PO HS RF: 0 ferrous sulfate 325 mg (65 mg iron) Tablet 325 mg PO HS RF: 0 melatonin 5 mg Tablet 5 mg PO HS PRN (Reason: Insomnia) RF: 0 cholecalciferol (vitamin D3) [Vitamin D3] 125 mcg (5,000 unit) Tablet 125 mcg PO HS RF: 0 metoprolol succinate 50 mg Capsule,Sprinkle,Er 24hr 50 mg PO HS RF: 0 Discharge Orders: Discharge Order (Routine); Ordered 10/03/20 Ordered By: Yoshi Kwon Admission Data Admit Date/Time: 09/30/20 09:50 Attending Provider: Yoshi Kwon Admit Provider: Yoshi Kwon Primary Care Provider: Garret Malik Other Providers: Addi Quiñonez Other Interventions: Discharge Summary Assessment (RN) Last Done: 10/04/20 09:33
== END 2020-10-04 14:51 | DRG 454 ==
LOC: ASU 05:05 → 3E 09:50